=== PATIENT | female | born 1960 | race Caucasian/White ===

== ENCOUNTER 2018-09-25 13:12 | Outpatient (CLI) | payer OTHER ==
[2018-09-25] MEDS ORDERED: BUFFERED LIDOCAINE 10 ML SYRINGE ONE (13:47)
[2018-09-25] MEDS ORDERED: BUFFERED LIDOCAINE 10 ML SYRINGE IU ONE (15:17)
--- NOTE | 2018-09-25 17:06 | Ultrasound Report ---
Reason: MULTIPLE THYROID NODULES Procedure Date: 09/25/2018 Accession Number: [id number] / [id number] Procedure: US - FNA Bx w/US Gnd les CPT Code: 96596 FULL RESULT: EXAM: THYROID FINE NEEDLE ASPIRATION EXAM DATE: 09/25/2018 03:13 PM. CLINICAL HISTORY: MULTIPLE THYROID NODULES. COMPARISON: None. TECHNIQUE: The risks, benefits, and alternatives of the procedure were discussed with the patient. All questions were answered. Written and verbal consent were obtained. A site was marked over the left thyroid nodule in question under live sonographic evaluation, then subsequently prepped and draped in a sterile manner. Local anesthesia was performed with 1% lidocaine. 5 22 gauge fine-needle aspirates/passes were performed through the left thyroid nodule in question, then passed to the review engineer for preparation. Estimated blood loss was less than 1 mL. Sonographic images demonstrate needle placement within left thyroid nodule in question. 3 FNA samples were sent in CytoLyt; 2 FNA samples sent in thyroSeq. FINDINGS IMPRESSION: Successful left thyroid FNA as described. RADIA
== END 2018-09-25 13:13 | disposition home or self-care (01) ==
LOC: DI 13:12
PROVIDERS: ATTEND Surgery
DX: E04.1 Nontoxic single thyroid nodule (principal)
CPT/HCPCS: 10005

== ENCOUNTER 2023-11-01 00:03 | Emergency (ER) | payer OTHER ==
--- NOTE | 2023-11-01 00:33 | ED Physician Documentation ---
PD HPI ABD PAIN - Stated complaint Stated Complaint: LT SIDE PX - Chief complaint Chief Complaint: Abd Pain - History obtained from History obtained from: Patient - Additional information Additional information: HPI from patient. 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 Pain waxes and wanes without exacerbating or ameliorating factors, sometimes associate with nausea and vomiting when it is at its most intense. The pain occasionally radiates around to the left mid/lower abdomen. Denies h/o similar symptoms. Denies urinary frequency, hematuria, dysuria. She also noted a painful, tender lump on her left posterior flank since yesterday from which she was able to express pus earlier this evening. Denies injury to the area. She says she has had a painless lump there for a few years and it occasionally gets inflamed and drains pus as it is tonight. Review of Systems Constitutional: denies: Fever, Chills, Sweats Cardiac: reports: Reviewed and negative Respiratory: reports: Reviewed and negative GI: reports: Abdominal Pain, Nausea, Vomiting. denies: Abdominal Swelling, Constipation : denies: Dysuria, Frequency, Hematuria Skin: reports: Lesions (patient noted focal, tender area of swelling on left flank earlier today and was able to express small amount of pus from the lesion) Neurologic: denies: Focal weakness, Numbness PD PAST MEDICAL HISTORY - Past Medical History Past Medical History: Yes Musculoskeletal: Gout - Past Surgical History Past Surgical History: No - Present Medications Home Medications: Ambulatory Orders Medication Instructions Recorded Confirmed Doxycycline [Vibramycin] 100 mg PO BID #14 tablet 11/01/23 Ondansetron Odt [Zofran] 4 mg TL Q6H PRN #14 tablet 11/01/23 Oxycodone HCl/Acetaminophen 1 - 2 each PO Q6H PRN #14 tablet 11/01/23 [Percocet 5-325 mg Tablet] Tamsulosin [Flomax] 0.4 mg PO DAILY #10 cap 11/01/23 - Allergies Allergies/Adverse Reactions: Allergies Allergy/AdvReac Type Severity Reaction Status Date / Time No Known Drug Allergies Allergy Verified 11/01/23 00:48 - Social History Does the pt smoke?: No Smoking Status: Never smoker Does the pt drink ETOH?: No PD ED PE NORMAL - Vitals Vital signs reviewed: Yes - General General: Alert and oriented X 3, Well developed/nourished, Other (appears to be in mild painful distress that waxes and wanes during H+P, occasionally shifting around in bed to try to find comfortable position) - Neck Neck: Supple, no meningeal sign - Cardiac Cardiac: RRR, No murmur - Respiratory Respiratory: No respiratory distress, Clear bilaterally - Abdomen Abdomen: Soft, Non distended, Other (mild TTP epigastrium without rebound or guarding) - Back Back: No CVA TTP - Derm Derm: Normal color, Warm and dry PD ED PE EXPANDED - Back Back visual: 1 - swelling (approximately 1cm diameter raised, tender erythema with pus draining from central punctate opening), tenderness Results - Vitals Vitals: Vital Signs - 24 hr 11/01/23 11/01/23 00:06 02:17 Temperature 36.1 C L Heart Rate 86 84 Respiratory 22 16 Rate Blood Pressure 215/99 H 183/107 H O2 Saturation 97 94 Oxygen O2 Source Room air - Labs Labs: Laboratory Tests 11/01/23 11/01/23 11/01/23 00:46 00:46 03:33 WBC 5.5 RBC 5.17 Hgb 15.1 Hct 45.3 MCV 87.6 MCH 29.2 MCHC 33.3 RDW 13.1 Plt Count 177 MPV 9.1 Neut # (Auto) 4.0 Lymph # (Auto) 1.1 L Blanco # (Auto) 0.3 Eos # (Auto) 0.1 Baso # (Auto) 0.0 Absolute Nucleated RBC 0.00 Nucleated RBC % 0.0 Sodium 136 Potassium 5.0 H Chloride 100 L Carbon Dioxide 23 Anion Gap 13.0 BUN 25 H Creatinine 1.3 Estimated GFR (MDRD) 42 L Glucose 231 H Calcium 10.1 Total Bilirubin 0.7 AST 56 H ALT 45 Alkaline Phosphatase 66 Total Protein 7.9 Albumin 4.6 Globulin 3.3 Albumin/Globulin Ratio 1.4 Lipase 49 Urine Color YELLOW Urine Clarity HAZY Urine pH 5.5 Ur Specific [place] 1.010 Urine Protein TRACE Urine Glucose (UA) 100 H Urine Ketones NEGATIVE Urine Occult Blood LARGE H Urine Nitrite NEGATIVE Urine Bilirubin NEGATIVE Urine Urobilinogen 0.2 (NORMAL) Ur Leukocyte Esterase NEGATIVE Urine RBC 11-25 H Urine WBC 0-3 Ur Squamous Epith Cells MOD Squamous H Urine Bacteria Few Ur Microscopic Review INDICATED Urine Culture Comments NOT INDICATED - Rads (name of study) CT A/P with IV contrast Relevant Findings:: Prelim report reviewed, See rad report PD Medical Decision Making - ED course Complexity details: reviewed results, re-evaluated patient, considered differential, d/w patient ED course: Normal CBC with insignificant/noncontributory finding of low lymphocytes. Notable but incidental findings on ER abdominal panel include mild hyperkalemia (5.0), hyperglycemia (231), and a GFR of 42. I do not have any previous results available in [employer] for comparative purposes, but these results were all discussed with the patient and I advised her to follow-up with her primary care provider for reevaluation of these abnormalities. No evidence of infectious process on urinalysis; hematuria noted as expected with the CT findings, below. CT of the abdomen and pelvis shows a proximal left 5 mm ureteral calculus causing hydronephrosis. This finding accounts for patient's symptoms of nausea, vomiting, and left flank pain. She had an adequate relief of symptoms with Toradol IV along with 4 mg IV morphine, but reported resolution of her pain after 1 mg IV Dilaudid. The nausea/vomiting was well-controlled with 4 mg IV Zofran. She was also given 2 L of normal saline IV. Incidental findings on the CT scan included gallstones, uterine exophytic lesion likely fibroid, multiple bilateral punctate intrarenal calculi, hepatic steatosis. All of the results were reviewed with the patient (not only blood tests, as noted above, but also the CT scan along with its incidental findings). She is provided take-home packs of ondansetron and Percocet, and I have electronically submitted prescriptions for Percocet, ondansetron, tamsulosin, and doxycycline to the [facility] pharmacy in [place]. She was given the first dose of doxycycline and tamsulosin in the emergency department. The doxycycline is given for the incidental finding of focal left flank/back cellulitis. She says that she has had this lesion for months, possibly years, and that it occasionally gets inflamed/infected as it has been since yesterday. I advised her to also discuss this with her primary care provider; she might benefit from referral to dermatology for excision of underlying cyst if this is suspected to be the nidus of recurrent infection. Departure - Departure Disposition: 01 Home, Self Care Clinical Impression: Renal colic, Cellulitis and abscess of trunk Condition: Good Instructions: ED Infec Skin Cellulitis, ED Stone Renal W Colic Follow-Up: Steve Orellana MD [Provider Admit Priv/Credential] - Prescriptions: Tamsulosin [Flomax] 0.4 mg PO DAILY #10 cap Oxycodone HCl/Acetaminophen [Percocet 5-325 mg Tablet] 1 - 2 each PO Q6H PRN #14 tablet PRN Reason: pain Doxycycline [Vibramycin] 100 mg PO BID #14 tablet Ondansetron Odt [Zofran] 4 mg TL Q6H PRN #14 tablet PRN Reason: Nausea / Vomiting Comments: The CT scan shows a medium-sized (5 mm) kidney stone that is blocking your left ureter. The ureter is the tube connecting the kidney to the bladder. When the kidney stone tries to go from the kidney to the bladder but gets stuck in the ureter, the blocakge that results causes the symptoms that you have been experiencing (flank pain with nausea and vomiting). You should follow-up with the urologist to discuss options for treatment. They might recommend giving more time to allow the stone to pass on its own, or else a surgical approach to remove the stone under general anesthesia. Contact your primary care provider or your insurance provider to obtain a proper urologic referral. I am providing the contact information (office address and office phone number) for the on- call urologist for [facility] on these discharge sheets as one option for follow-up. I have electronically submitted prescriptions for Percocet (narcotic/opiate pain medication), ondansetron (antinausea medication), and tamsulosin (medication that can slightly increase the chances of passing the stone without a procedure and slightly decrease the time to passing the stone) to the [facility] pharmacy in [place]. As we discussed, there was also the incidental finding on your left flank/back of a skin infection (cellulitis). For this infection, I have also electronically submitted a prescription for a one-week course of doxycycline (antibiotic) to the [facility] pharmacy, and you were given the first dose of the doxycycline in the emergency department. Also, as we discussed, the CT scan also showed gallstones, which are an incidental finding (not causing your symptoms). Findings on your blood tests that should be reevaluated by your primary care provider include high potassium (5.0), high blood sugar (231), abnormal kidney function tests (GFR 42). You should arrange for next available appointment with your primary care provider for further evaluation of these results. I am prescribing a short course of narcotic pain medication for you. These are potentially dangerous and addictive medications that should be used carefully. These medications may constipate you. Take an bhxt-doe-ygnxuem stool softener (docusate) twice daily with plenty of water while taking these medications. If you go 24 hours without a bowel movement, take wczi-kqw-tkbhdsm miralax, per package instructions. Do not drink or drive while taking these medications. If you received narcotic or sedating medications while in the emergency department, do not drive for 24 hours. Store this medication in a safe, secure place and out of reach of children. It is a violation of federal law to give or sell this medication to another person or to use in a manner other than prescribed. The ED will not refill narcotic prescriptions, including prescriptions lost or stolen. To dispose of unwanted medications: 1. [facility] at [address] in [place] has a medication drop box. They accept prescription medications (in pill form) Sunday through Sunday 9:00 a.m. to 5:00 p.m. 2. The [facility] [employer] accepts prescription medications (in pill form only) for disposal year round. Call for more information. 3. Contact the [facility] for the next [facility] sponsored prescription drug collection event. , [phone], or [phone]; Forms: PCP List Discharge Date/Time: 11/01/23 04:12
[2023-11-01] MEDS ORDERED: iohexoL-300 100 ML VIAL ONE (00:35)
[2023-11-01] MEDS: SODIUM CHLORIDE 0.9% 1,000 ML IV STA (00:50)
[2023-11-01 00:51] LABS: BASOPHILS % (AUTO) 0.5 %; EOSINOPHILS # (AUTO) 0.1 10^3/uL (0.0-0.7); EOSINOPHILS % (AUTO) 1.8 %; HCT - HEMATOCRIT 45.3 % (37.0-47.0); HGB - HEMOGLOBIN 15.1 g/dL (12.0-16.0); LYMPHOCYTES # (AUTO) 1.1 10^3/uL (1.5-3.5); LYMPHOCYTES % (AUTO) 19.3 %; MEAN CORPUSCULAR HEMOGLOBIN 29.2 pg (27.0-31.0); MEAN CORPUSCULAR HGB CONC 33.3 g/dL (32.0-36.0); MEAN CORPUSCULAR VOLUME 87.6 fL (81.0-99.0); MEAN PLATELET VOLUME 9.1 fL (7.9-10.8); MONOCYTES # (AUTO) 0.3 10^3/uL (0.0-1.0); MONOCYTES % (AUTO) 6.1 %; NEUTROPHILS % (AUTO) 72.1 %; PLT - PLATELET COUNT 177 10^3/uL (130-450); RED BLOOD COUNT 5.17 10^6/uL (4.20-5.40); RED CELL DISTRIBUTION WIDTH 13.1 % (12.0-15.0); WHITE BLOOD COUNT 5.5 x10^3/uL (4.8-10.8)
[2023-11-01] MEDS: ONDANSETRON 4 MG/2 ML VIAL IVP STA (00:51)
[2023-11-01] MEDS: MORPHINE 2 MG/ML CARPUJECT IVP STA (00:51)
[2023-11-01] MEDS: KETOROLAC 30 MG/ML VIAL IVP STA (00:51)
[2023-11-01 01:13] LABS: ALBUMIN 4.6 g/dL (3.2-5.5); ALBUMIN/GLOBULIN RATIO 1.4 (1.0-2.2); BILIRUBIN,TOTAL 0.7 mg/dL (0.2-1.0); CALCIUM 10.1 mg/dL (8.5-10.3); CREATININE 1.3 mg/dL (0.6-1.3); TOTAL PROTEIN 7.9 g/dL (6.4-8.9)
[2023-11-01] MEDS: iohexoL-300 100 ML VIAL IVP ONE (01:50)
[2023-11-01] MEDS: HYDROmorphone 1 MG/ML CARPUJECT IVP STA (01:57)
--- NOTE | 2023-11-01 01:58 | CT Report ---
PROCEDURE: Abdomen/Pelvis W INDICATIONS: left flank pain CONTRAST: Omni 300, 100mls TECHNIQUE: After the administration of intravenous contrast, a CT scan of the abdomen and pelvis was performed. Images were recorded and evaluated at appropriate window settings. Reformats: coronal and sagittal. F or radiation dose reduction, the following was used: automated exposure control, adjustment of mA and /or kV according to patient size. COMPARISON: None. FINDINGS: Image quality: Diagnostic. Lower chest: Small hiatal hernia. Lung bases are clear. Liver: No solid mass. Hepatic steatosis. Gallbladder and biliary tree: Cholelithiasis without wall thickening. No biliary dilation. Spleen: No splenomegaly. Pancreas: No pancreatic ductal dilation. Adrenals: No adrenal nodule. Kidneys and ureters: Obstructing stone within the left proximal ureter measuring 5 mm resulting in mi ld upstream hydroureteronephrosis. Additional smaller nonobstructing stones of the bilateral kidneys. Mildly delayed left nephrogram. No right hydronephrosis. Stomach, bowel and peritoneum: No bowel distension. No pathologic free fluid. Normal appendix. Lymph nodes: No central or retroperitoneal adenopathy. Vessels: No infrarenal aortic aneurysm. Vascular vascular opacifications. PELVIS Reproductive organs: Likely partially exophytic fibroid arising from the right fundus of the uterus.. Bladder: No abnormal wall thickening, accounting for underdistention. Pelvic lymph nodes: No pelvic adenopathy by size criteria. Bones: No aggressive osseous abnormality. Other: No significant ventral or inguinal hernia. IMPRESSION: 1.Obstructing 5 mm stone within the proximal left ureter resulting in mild hydroureteronephrosis. 2.Delayed left nephrogram, may be secondary to obstruction versus pyelonephritis. Recommend correlati on with urinary analysis. 3.Additional smaller nonobstructing stones bilaterally. 4.Hepatic steatosis. 5.Cholelithiasis without evidence of acute cholecystitis. Reviewed by: Amol Hannah MD on 11/01/2023 1:56 AM PDT Approved by: Amol Hannah MD on 11/01/2023 1:56 AM PDT Station ID: [id number]
[2023-11-01] MEDS: TAMSULOSIN 0.4 MG CAPSULE PO STA (02:18)
[2023-11-01 02:57] VITALS: BP 183/107; O2SAT 94
[2023-11-01 03:47] LABS: BILIRUBIN,URINE NEGATIVE (NEGATIVE); GLUCOSE, URINE (UA) 100 mg/dL (NEGATIVE); KETONES,URINE (UA) NEGATIVE (NEGATIVE); LEUKOCYTE ESTERASE, URINE NEGATIVE (NEGATIVE); NITRITE,URINE NEGATIVE (NEGATIVE); OCCULT BLOOD,URINE LARGE (NEGATIVE); PH,URINE 5.5 PH (5.0-7.5); PROTEIN,URINE TRACE mg/dL (NEGATIVE); UROBILINOGEN,URINE 0.2 (NORMAL) E.U./dL (NORMAL)
[2023-11-01 03:48] LABS: CLARITY,URINE HAZY (CLEAR)
[2023-11-01 03:52] LABS: BACTERIA,URINE Few /HPF (None Seen); SQUAMOUS EPITHELIAL CELL,UR MOD Squamous (<= Few); WBC,URINE 0-3 /HPF (0-5)
[2023-11-01] MEDS: DOXYCYCLINE 100 MG TABLET PO STA (04:05)
[2023-11-01] MEDS: oxyCODONE/ACET 5/325 Prepack 4 PO STA (04:05)
[2023-11-01] MEDS: ONDANSETRON ODT 4 MG Prepack 2 TL PRN (04:06)
== END 2023-11-01 04:12 | disposition home or self-care (01) ==
LOC: ED 00:03
DX: L03.319 Cellulitis of trunk, unspecified (principal); L02.219 Cutaneous abscess of trunk, unspecified; N20.0 Calculus of kidney
CPT/HCPCS: 36415; 74177; 80053; 81001; 83690; 85025; 96374; 96375; 99283; 99284; A9270; J1170; Q9967; 81003; 87086

== ENCOUNTER 2023-11-19 10:13 | Day surgery (SDC) | payer OTHER ==
[2023-11-19] MEDS ORDERED: ceFAZolin 2 GM VIAL ONE (10:21)
[2023-11-19] MEDS: LACTATED RINGERS 1,000 ML IV ONE ×3 (10:28→14:07)
[2023-11-19] MEDS ORDERED: LIDOCAINE 2% URO-JET 5 ML SYRINGE UR ONE (12:48)
[2023-11-19] MEDS ORDERED: iohexoL-240 10 ML VIAL IVP ONE (12:59)
[2023-11-19] MEDS ORDERED: MIDAZOLAM 2 MG/2 ML VIAL ONE (13:27)
[2023-11-19] MEDS ORDERED: KETOROLAC 30 MG/ML VIAL ONE (13:29)
[2023-11-19] MEDS ORDERED: fentaNYL 100 MCG/2 ML VIAL ONE (13:29)
[2023-11-19] MEDS ORDERED: PROPOFOL 200 MG/20 ML VIAL IVP ONE (13:29)
[2023-11-19] MEDS ORDERED: ONDANSETRON 4 MG/2 ML VIAL ONE (13:29)
[2023-11-19] MEDS: LIDOCAINE 2% URO-JET 5 ML SYRINGE UR ONE (13:45)
[2023-11-19] MEDS ORDERED: HYDROcod/ACETAM 5/325 MG TABLET PO PRN (14:12)
[2023-11-19] MEDS ORDERED: ONDANSETRON 4 MG/2 ML VIAL IVP PRN ×2 (14:12→14:15)
[2023-11-19] MEDS ORDERED: METOCLOPRAMIDE 10 MG/2 ML VIAL IVP PRN (14:15)
[2023-11-19] MEDS ORDERED: NALOXONE 0.4 MG/ML VIAL IVP PRN (14:15)
[2023-11-19] MEDS ORDERED: ATROPINE ABBOJECT 1 MG/10 ML SYRINGE IVP PRN (14:15)
[2023-11-19] MEDS ORDERED: HYDROmorphone 0.5 MG/0.5 ML SYRINGE IVP PRN (14:15)
[2023-11-19] MEDS ORDERED: MORPHINE 2 MG/ML CARPUJECT IVP PRN (14:15)
[2023-11-19] MEDS ORDERED: ePHEDrine 50 MG/ML VIAL IVP PRN (14:15)
[2023-11-19] MEDS ORDERED: fentaNYL 100 MCG/2 ML VIAL IVP PRN (14:15)
--- NOTE | 2023-11-19 14:18 | ANESTHESIA ---
Pre-Anesthesia VS, & Labs - Diagnosis L ureteral stone - Procedure cystoscopy, L stent placement Vital Signs: Temp Pulse Resp BP Pulse Ox O2 Flow Rate 36.5 C 88 23 155/74 H 98 11/19/23 10:31 11/19/23 10:31 11/19/23 10:31 11/19/23 10:31 11/19/23 10:31 Height: 5 ft 7 in Weight (kg): 114.8 kg Body Mass Index: 39.6 BMI Classification: Obese - NPO >8 hours - Is Patient ?: No Home Medications and Allergies Allergies/Adverse Reactions: Allergies Allergy/AdvReac Type Severity Reaction Status Date / Time No Known Drug Allergies Allergy Verified 11/19/23 10:45 Anes History & Medical History - Anesthetic History Anesthesia Complications: reports: No previous complications Family history of Anesthesia Complications: Denies Family history of Malignant Hyperthermia: Denies - Medical History Cardiovascular: reports: None Pulmonary: reports: None Gastrointestinal: reports: Chronic diarrhea Urinary: reports: Kidney stones Musculoskeletal: reports: Gout Endocrine/Autoimmune: reports: Other (trunchal obesity) Skin: reports: Eczema Smoking Status: Never smoker Psychosocial: reports: Alcohol Exam General: Alert, Oriented x3, Cooperative Dental: WNL Mouth Openin Fingerbreadth Neck Mobility: Normal Mallampati classification: III Thyromental Distance: less than 4 cm Respiratory: Lungs clear Cardiovascular: Regular rate Plan Anesthesia Type: General Consent for Procedure(s) Verified and Reviewed: Yes Code Status: Attempt Resuscitation ASA classification: 2-Mild systemic disease Is this case an emergency?: No
--- NOTE | 2023-11-19 14:19 | Discharge Plan ---
Discharge Plan Problem Reviewed?: Yes Disposition: Home, Self Care Condition: Good Prescriptions: Docusate Sodium 100Mg Capsule [Colace 100Mg Capsule] 100 mg PO DAILY #7 cap oxyCODONE [Roxicodone] 5 mg PO Q4H PRN #10 tablet PRN Reason: Pain Diet: Regular Activity Restrictions: No Restrictions Shower Restrictions: No Driving Restrictions: No Instruction Topics: Stents Ureteral Additional Instructions or Follow Up instructions: You will be contacted for follow-up with Dr. Orellana in 3 months time No Smoking: If you smoke, Please STOP! Call for help. Follow-up with: Steve Orellana MD [Provider Admit Priv/Credential] -
--- NOTE | 2023-11-19 14:22 | OPERATIVE REPORT ---
Operative Report - General Procedure Date: 11/19/23 Planned Procedure: Cystoscopy, left ureteroscopy, laser lithotripsy and stent Pre-Op Diagnosis: Left ureteral stone Procedure Performed: Cystoscopy, left ureteroscopy, basket stone extraction and stent Post Op Diagnosis: Left kidney stone - Procedure Note Primary Surgeon: Esteban Anesthesia Provider: LAY Black Anesthesia Technique: General LMA Pathology: left kidney stone Estimated Blood Loss (mL): 0 Findings: left 4mm kidney stone paiz in color Complications: none - Other Other Information/Narrative: After informed consent was obtained the patient was brought to the OR and laid in the supine position. The patient was anesthetized per anesthesia protocols and prepped draped in usual sterile fashion in the dorsolithotomy position. A formal timeout was performed reconfirming the patient, procedure and laterality. A 22 Dominican scope was advanced easily into urinary bladder. Bladder inspected and full and there were no masses, lesions or other concerns. A sensor wire was placed into her left ureteral orifice up into the kidney under fluoroscopic guidance. We cannot see any radiopaque stones. A flexible ureteroscope advanced over the wire up into the kidney. In the kidney we saw a 4 mm paiz stone consistent possibly with uric acid. Her ureter was then cleared and there were no other stones. We then returned to the kidney and using a basket we grasped the stone and were able to manipulate it down and out for analysis. The cystoscope was advanced back into the bladder and using a sensor wire up into the kidney we placed a 6 Dominican 26 cm double-J ureteral stents with good curling noted in the kidney and good curling noted in the bladder. The bladder was emptied and a Uro-Jet was placed. The stent was left on a string and was taped with a Tegaderm to her lower pelvis. This concluded the procedure the patient tolerated procedure well. She will take the stent out 3 days time and she will follow-up with Dr. Orellana in 3 months time
[2023-11-19 14:53] VITALS: BP 164/81
[2023-11-19 14:54] VITALS: O2SAT 97
[2023-11-19] MEDS ORDERED: LACTATED RINGERS 1,000 ML IV SCH (15:00)
--- NOTE | 2023-11-19 16:00 | ANESTHESIA POST OP EVALUATION ---
Anesthesia Post Eval - Post Anesthesia Eval Vitals: Last Vital Signs Temp 35.9 C L 11/19/23 14:34 Pulse 75 11/19/23 14:50 Resp 16 11/19/23 14:50 BP 164/81 H 11/19/23 14:50 Pulse Ox 97 11/19/23 14:50 O2 Flow Rate CV Function Including HR & BP: Stable Pain Control: Satisfactory Nausea & Vomiting: Negative Mental Status: Baseline Respiratory Status: Airway Patent Hydration Status: Satisfactory Anesthesia Complications: None
--- NOTE | 2023-11-20 12:15 | XRAY Report ---
PROCEDURE: OR C-Arm Procedure INDICATIONS: ureteral stent placement FLUORO TIME: 0.1 MIN TECHNIQUE: 4 intraoperative fluoroscopic images of left abdomen or pelvis. COMPARISON: CT of abdomen and pelvis dated 11/01/2023 FINDINGS: Intraoperative fluoroscopic images shows left-sided ureteral stent placement. IMPRESSION: Fluoroscopy guidance was provided intraoperatively for left-sided ureteral stent placement. Reviewed by: Tam Erazo MD on 11/20/2023 12:13 PM PDT Approved by: Tam Erazo MD on 11/20/2023 12:13 PM PDT Station ID: [id number]
== END 2023-11-19 10:14 | disposition home or self-care (01) ==
LOC: SDS 10:13
PROVIDERS: ATTEND Urology
PROC: 0T778DZ Dilation of Left Ureter with Intraluminal Device, Via Natural or Artificial Opening Endoscopic (ICD-10-PCS; 2023-11-19)
PROC: 0TC48ZZ Extirpation of Matter from Left Kidney Pelvis, Via Natural or Artificial Opening Endoscopic (ICD-10-PCS; principal; 2023-11-19 12:15)
DX: N20.0 Calculus of kidney (principal); E66.9 Obesity, unspecified; Z68.39 Body mass index [BMI] 39.0-39.9, adult
CPT/HCPCS: 52332; 52352; 82365; J7120; Q9966

== ENCOUNTER 2024-03-01 15:46 | Outpatient (CLI) | payer OTHER ==
--- NOTE | 2024-03-01 22:21 | Ultrasound Report ---
PROCEDURE: Renal (Retroperitoneal) INDICATIONS: URETERIC STONE TECHNIQUE: Real-time scanning was performed of the retroperitoneal organs, with image documentation. COMPARISON: CT abdomen and pelvis with contrast dated 11/01/2023, at which time there was an obstruct ing 5 mm stone in the proximal left ureter with resulting mild hydronephrosis. FINDINGS: Kidneys: Clearly evident on the CTs the presence of a somewhat small and shrunken right kidney. Right kidney measures 9.4 cm long. The length of the kidney is within normal limits. However, it is defini tely atrophied. There is a 5 mm echogenic right renal stone which is nonobstructive. Left kidney brina ures 13.5 cm long. Right renal cortical thickness is 0.9 cm; left renal cortical thickness is 1.6 cm . No solid masses, hydronephrosis, or nephrolithiasis. Previous left hydronephrosis has resolved. Bladder: Pre-void bladder volume is 225.5 mL. Post-void residual is 23.4 mL. Pre-void images demon strate no intraluminal masses or stones. On pre-void images, bilateral ureteral jets are noted with color Doppler interrogation. (Of note, ureteral jets may not be detectable in up to 25% of cases due to insufficient differences in specific gravity between ureteral and bladder urine). Miscellaneous: No free abdominal fluid. IMPRESSION: 1. The proximal left ureteral stone has most likely resolved. However, in this patient with a somewha t atrophied right kidney, would recommend CT KUB to prove that the proximal left ureteral stone is in fact resolved, to prevent unintended left renal cortical volume loss over time. Reviewed by: Jovani Arellano MD on 03/01/2024 10:19 PM PDT Approved by: Jovani Arellano MD on 03/01/2024 10:19 PM PDT Station ID: [id number]
== END 2024-03-01 15:47 | disposition home or self-care (01) ==
LOC: DI 15:46
PROVIDERS: ATTEND Urology
DX: N20.1 Calculus of ureter (principal); N26.1 Atrophy of kidney (terminal); Z87.442 Personal history of urinary calculi